=== PATIENT | female | born 1995 | race Caucasian/White ===

== ENCOUNTER 2018-01-12 12:13 | Emergency (ER) | payer BC, OTHER ==
[2018-01-12] MEDS: DEXAMETHASONE 10 MG/ML 1 ML INJ IV (14:25)
[2018-01-12] MEDS: KETOROLAC 30 MG INJ IV (14:26)
[2018-01-12] MEDS: CEFTRIAXONE 2 GM/50 ML (PMX) 50 ML IVPB (15:28)
== END 2018-01-12 16:06 | disposition home or self-care (01) ==
LOC: FTE 12:13
DX: L03.317 Cellulitis of buttock (principal)
CPT/HCPCS: 81025; 96365; 96375; 99284-25